=== PATIENT | female | born 1995 | race Native Hawaiian/Other Pacific Islander ===

== ENCOUNTER 2019-02-08 18:52 | Emergency (ER) | payer OTHER ==
[2019-02-08 19:54] LABS: BILIRUBIN,URINE NEGATIVE (NEGATIVE); GLUCOSE, URINE (UA) NEGATIVE (NEGATIVE); KETONES,URINE (UA) NEGATIVE (NEGATIVE); LEUKOCYTE ESTERASE, URINE SMALL (NEGATIVE); NITRITE,URINE NEGATIVE (NEGATIVE); OCCULT BLOOD,URINE TRACE-INTA (NEGATIVE); PROTEIN,URINE NEGATIVE (NEGATIVE); UROBILINOGEN,URINE 0.2 (NORMAL) E.U./dL (NORMAL)
[2019-02-08 20:00] LABS: CLARITY,URINE HAZY (CLEAR)
[2019-02-08 20:01] LABS: RBC,URINE 0-5 /HPF (0-5)
[2019-02-08 20:02] LABS: BACTERIA,URINE Few /HPF (None Seen); SQUAMOUS EPITHELIAL CELL,UR FEW Squamous (<= Few)
--- NOTE | 2019-02-08 21:18 | ED Physician Documentation ---
PD HPI HEADACHE - Stated complaint Stated Complaint: HEADACHE - Chief complaint Chief Complaint: Neuro - History obtained from History obtained from: Patient - History of Present Illness Timing - onset: Enter time (1100), Today Timing - onset during: Rest Timing - duration: Hours Timing - details: Gradual onset, Still present Location: Front Quality: Throbbing Associated symptoms: Stiff neck, Nausea, Vomiting. No: Fever, Weakness, Numbness, Syncope, Seizure, Eye pain, Vision changes Improved by: Rest, Dark room, Meds Worsened by: Light, Noise, Moving Similar symptoms before: Diagnosis (migraine) Recently seen: Not recently seen - Additional information Additional information: 23-year-old female who is 9 weeks has developed a headache and nausea and vomiting. She has not had vomiting with her so far and she was asked by her OB to come into the department for evaluation. She denies any urinary tract symptoms currently. Review of Systems Constitutional: denies: Fever Eyes: denies: Decreased vision Ears: denies: Ear pain Nose: denies: Rhinorrhea / runny nose, Congestion Throat: denies: Sore throat Respiratory: denies: Dyspnea, Cough GI: reports: Nausea, Vomiting. denies: Abdominal Pain, Constipation, Diarrhea : denies: Dysuria, Frequency Skin: denies: Rash Musculoskeletal: reports: Neck pain. denies: Back pain, Extremity pain Neurologic: reports: Headache. denies: Generalized weakness, Focal weakness, Numbness, Head injury, LOC PD PAST MEDICAL HISTORY - Past Medical History Past Medical History: No - Past Surgical History Past Surgical History: No - Present Medications Home Medications: Ambulatory Orders Medication Instructions Recorded Confirmed Nitrofurantoin Monohyd/M-Cryst 100 mg PO BID #10 capsule 02/08/19 [Macrobid 100 mg Capsule] Pnv No.95/Ferrous Fum/Folic AC 1 each PO 02/08/19 [ [place]] - Allergies Allergies/Adverse Reactions: Allergies Allergy/AdvReac Type Severity Reaction Status Date / Time No Known Drug Allergies Allergy Verified 02/08/19 19:02 - Social History Does the pt smoke?: No Smoking Status: Never smoker Does the pt drink ETOH?: No Does the pt have substance abuse?: No - Immunizations Immunizations are current?: Yes - POLST Patient has POLST: No PD ED PE NORMAL - Vitals Vital signs reviewed: Yes (tachy and hypertensive) - General General: Alert and oriented X 3, No acute distress, Well developed/nourished - HEENT HEENT: Atraumatic, PERRL, EOMI, Ears normal - Neck Neck: Supple, no meningeal sign, No bony TTP - Cardiac Cardiac: RRR, No murmur - Respiratory Respiratory: No respiratory distress, Clear bilaterally - Abdomen Abdomen: Normal bowel sounds, Soft, Non tender, Non distended, No organomegaly - Back Back: No CVA TTP, No spinal TTP - Derm Derm: Normal color, Warm and dry, No rash - Extremities Extremities: No deformity, No edema - Neuro Neuro: Alert and oriented X 3, 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, No motor deficit, No sensory deficit, Normal speech Eye Opening: Spontaneous Motor: Obeys Commands Verbal: Oriented GCS Score: 15 - Psych Psych: Normal mood, Normal affect Results - Vitals Vitals: Vital Signs - 24 hr 02/08/19 02/08/19 19:00 22:44 Temperature 36.5 C 36.8 C Heart Rate 108 H 91 Respiratory 18 17 Rate Blood Pressure 142/83 H 120/68 O2 Saturation 100 100 Oxygen O2 Source Room air - Labs Labs: Laboratory Tests 02/08/19 02/08/19 19:44 21:39 HCG, Quant 09560.00 Urine Color YELLOW Urine Clarity HAZY Urine pH 6.0 Ur Specific [place] 1.010 Urine Protein NEGATIVE Urine Glucose (UA) NEGATIVE Urine Ketones NEGATIVE Urine Occult Blood TRACE-INTA Urine Nitrite NEGATIVE Urine Bilirubin NEGATIVE Urine Urobilinogen 0.2 (NORMAL) Ur Leukocyte Esterase SMALL H Urine RBC 0-5 Urine WBC 6-10 H Ur Squamous Epith Cells FEW Squamous Urine Bacteria Few Ur Microscopic Review INDICATED Urine Culture Comments INDICATED - Rads (name of study) ob u/s Radiology: Prelim report reviewed (Impression: 1. Single demised intrauterine at EGA 9 weeks 1 day with FARHANA 09/12/2019 based on crown-rump length which is concordant with clinical dates. Ovaries appeared normal with probable corpus luteum cyst on the left.), EMP read indepedently, See rad report Procedures - Bedside sono Bedside sono by EMP: With use of bedside ultrasound the pelvis is imaged there is a gestational sac and some debris in the sac without definitive identification of a fetus or heart rate. - IVC sono (time) 2115 Bedside IVC sono: IVC measures (cm) (1.42), Euvolemia (nearly so) PD MEDICAL DECISION MAKING - ED course Complexity details: reviewed results, re-evaluated patient, considered differential, d/w patient ED course: 23 y/o female with migraine is 9 wks . She has no symptoms referred to her and her migraine has been amenable to tylenol. Evaluation of the fetus is undertaken as part of the exam and I was not able to demonstrate a live fetus with bedside ultrasound and a formal ultrasound was obtained showing the unfortunate demise of the fetus. This was un-expected and the patient was emotional about this. She indicates that this was not a planned but both her and her partner were excited about the baby. On evaluation of the urine she appears to have UTI as well. Departure - Departure Disposition: 01 Home, Self Care Clinical Impression: demise Migraine Qualifiers: Migraine type: without aura Status migrainosus presence: without status migrainosus Intractability: not intractable Qualified Code(s): G43.009 - Migraine without aura, not intractable, without status migrainosus Urinary tract infection Qualifiers: Urinary tract infection type: acute cystitis Hematuria presence: without hematuria Qualified Code(s): N30.00 - Acute cystitis without hematuria Condition: Stable Instructions: ED Miscarriage Incom, ED Headache Migraine, ED UTI Cystitis Female Follow-Up: [facility] [Provider Group] Prescriptions: Nitrofurantoin Monohyd/M-Cryst [Macrobid 100 mg Capsule] 100 mg PO BID #10 capsule Forms: Activity restrictions Discharge Date/Time: 02/08/19 23:13
--- NOTE | 2019-02-08 22:41 | Ultrasound Report ---
Reason: vomiting, sac without identified fetus on bedside Procedure Date: 02/08/2019 Accession Number: [id number] / [id number] Procedure: US - OB First Trimester CPT Code: FULL RESULT: EXAM: FIRST TRIMESTER OBSTETRIC ULTRASOUND (Less than 11 weeks) EXAM DATE: 02/08/2019 09:56 PM. CLINICAL HISTORY: Vomiting, sac without identified fetus on bedside. LMP: 12/06/2018. COMPARISONS: None. TECHNIQUE: Transabdominal and transvaginal ultrasound examination with static image documentation. CLINICAL DATES: EGA 9 weeks 1 day with FARHANA 09/12/2019 based on LMP. ASSESSMENT: Gestational Sac: Single intrauterine. Mean gestational sac diameter: 35 mm = 8 weeks 5 days. Embryo: CRL (crown-rump length) 24 mm = 9 weeks 1 day. Cardiac activity: Not seen. Yolk sac: 6 mm. Amniotic fluid: Not accurately assessed at this gestational age. Early placenta: Not visible at this gestational age. Other: No perigestational fluid collection demonstrated. MATERNAL STRUCTURES: Uterus: Anteverted. Unremarkable. Cervix: Closed. Right Ovary/Adnexa: The ovary measures 2.3 x 1.7 x 2.4 cm, volume 4.7 cc. Unremarkable. Left Ovary/Adnexa: The ovary measures 2.9 x 2.5 x 2.4 cm, volume 9.0 cc. Septated cyst measuring 1.5 x 1.3 x 1.5 cm. Free Fluid: None. Other: None. IMPRESSION: 1. Single demised intrauterine at EGA 9 weeks 1 day with FARHANA 09/12/2019 based on crown-rump length, which is concordant with clinical dates. 2. Ovaries appear normal with probable corpus luteum cyst on the left.. RADIA
[2019-02-08 22:45] VITALS: BP 120/68
[2019-02-08] MEDS ORDERED: ACETAMINOPHEN 325 MG TABLET PO STA (23:00)
[2019-02-08] MEDS ORDERED: NITROFURANTOIN MACRO 100 MG CAPSULE PO STA (23:02)
== END 2019-02-08 23:13 | disposition home or self-care (01) ==
LOC: ED 18:52
DX: O02.1 Missed abortion (principal); O23.41 Unspecified infection of urinary tract in pregnancy, first trimester; G43.009 Migraine without aura, not intractable, without status migrainosus; Z3A.09 9 weeks gestation of pregnancy
CPT/HCPCS: 36415; 76801; 76817; 81001; 84702; 87086; 99284; A9270; 81003

== ENCOUNTER 2019-02-16 11:20 | Day surgery (SDC) | payer OTHER ==
[2019-02-16] MEDS ORDERED: KETOROLAC 30 MG/ML VIAL IVP ONE (11:21)
[2019-02-16] MEDS ORDERED: ONDANSETRON 4 MG/2 ML VIAL IVP ONE (11:21)
[2019-02-16] MEDS ORDERED: fentaNYL 100 MCG/2 ML VIAL IVP ONE (11:21)
[2019-02-16] MEDS ORDERED: MIDAZOLAM 2 MG/2 ML VIAL IVP ONE (11:21)
[2019-02-16] MEDS ORDERED: DEXAMETHASONE 4 MG/ML VIAL IVP ONE (11:21)
[2019-02-16] MEDS ORDERED: PROPOFOL 200 MG/20 ML VIAL IVP ONE (11:21)
[2019-02-16] MEDS ORDERED: LEVONORGESTREL 20 MCG/24H IUD IY ONE (11:29)
[2019-02-16] MEDS ORDERED: LIDOCAINE-MPF 1% 30 ML VIAL ONE (11:29)
[2019-02-16] MEDS ORDERED: SILVER NITRATE APPLICATOR TOP ONE (11:29)
[2019-02-16] MEDS ORDERED: LACTATED RINGERS 1,000 ML IV ONE ×2 (11:33→13:10)
--- NOTE | 2019-02-16 12:02 | ANESTHESIA ---
Pre-Anesthesia VS, & Labs - Diagnosis missed ab, desires control - Procedure Suction Dilation and curettage, placement of mirena Vital Signs: Temp Pulse Resp BP Pulse Ox 36.9 C 101 H 16 131/73 H 100 02/16/19 11:33 02/16/19 11:33 02/16/19 11:33 02/16/19 11:33 02/16/19 11:33 Height 5 ft 3 in Weight (kg) 78.6 kg Body Mass Index 31.1 - NPO >8 hours - Is Patient ?: Not Applicable Home Medications and Allergies Home Medications: Ambulatory Orders No Known Home Medications 02/16/19 No Known Home Medications 02/16/19 Allergies/Adverse Reactions: Allergies Allergy/AdvReac Type Severity Reaction Status Date / Time No Known Drug Allergies Allergy Verified 02/16/19 11:33 Anes History & Medical History - Anesthetic History Anesthesia Complications: reports: No previous complications - Medical History Cardiovascular: reports: None Pulmonary: reports: None Gastrointestinal: reports: None Urinary: reports: None Neuro: reports: None Musculoskeletal: reports: None Endocrine/Autoimmune: reports: None Blood Disorders: reports: None Skin: reports: None Smoking Status: Never smoker Psychosocial: reports: No issues indicated - Surgical History Eyes Ears Nose Throat (EENT): Tonsil/Adenoidectomy Exam General: Alert, Oriented x3, Cooperative, No acute distress Dental: WNL Mouth Openin Fingerbreadth Neck Mobility: Normal Mallampati classification: I Thyromental Distance: greater than 6 cm Respiratory: Lungs clear, Normal breath sounds, No respiratory distress, No accessory muscle use Cardiovascular: Regular rate, Normal S1, Normal S2, No murmurs Mental/Cognitive Status: Alert/Oriented X3, Normal for patient Plan Anesthesia Type: General Consent for Procedure(s) Verified and Reviewed: Yes Code Status: Attempt Resuscitation ASA classification: 1-Healthy patient Is this case an emergency?: No
[2019-02-16] MEDS ORDERED: LIDOCAINE 1% 50 ML MDV SUBQ ONE (12:20)
[2019-02-16] MEDS ORDERED: HYDROcod/ACETAM 10 MG/325 MG TABLET PO PRN (12:55)
--- NOTE | 2019-02-16 12:59 | OPERATIVE REPORT ---
Operative Report - General Procedure Date: 02/16/19 Planned Procedure: suction curettage Placement of Mirena IUD Pre-Op Diagnosis: missed Ab Procedure Performed: RAMESH Post Op Diagnosis: RAMESH - Procedure Note Primary Surgeon: Radha Anesthesia Provider: Sherrie Anesthesia Technique: General LMA Pathology: POC Indications: Missed Ab Findings: EUA 10 week retroverted uterus, normal adnexa Operative: Uterus sound 10cm, copious POC Complications: none - Other Other Information/Narrative: A sterile bivalved speculum was then placed into the vagina, and the anterior lip of the cervix was grasped with a single-tooth tenaculum. 1% lidocaine was then injected at the 2:00, 4:00, 7:00, and 10:00 positions for a paracervical block. Serial dilation using Hegar dilators was then performed until a 9 mm curved rigid suction curette could be gently advanced to the uterine fundus. Using gentle suction, tissue and clot were removed. Sharp curettage was then performed with minimal additional tissue noted. Good crie was noted on all 4 mccarty of the uterus. The suction curette was then reintroduced to ensure there was no residual tissue, and none was noted. There was minimal bleeding from the cervix at this time. The tenaculum was removed, and the tenaculum sites were hemostatic without need for silver nitrate. At this point, the procedure was deemed completed. Sponge, lap, and needle count were correct x 3, and there were no complications. The patient was awakened, replaced supine, and transferred to the PACU in stable condition
--- NOTE | 2019-02-16 14:08 | OPERATIVE REPORT ---
Operative Report - General Procedure Date: 02/16/19
[2019-02-16 14:25] VITALS: BP 111/61
== END 2019-02-16 11:21 | disposition home or self-care (01) ==
LOC: SDS 11:20
PROVIDERS: ATTEND Obstetrics & Gynecology
PROC: 10D17ZZ Extraction of Products of Conception, Retained, Via Natural or Artificial Opening (ICD-10-PCS; principal; 2019-02-16 12:30)
DX: O02.1 Missed abortion (principal); G43.909 Migraine, unspecified, not intractable, without status migrainosus
CPT/HCPCS: 59820; J7120; J7298